=== PATIENT | male | born 1955 | race Caucasian/White ===

== ENCOUNTER 2022-01-29 21:16 | Emergency (ER) | payer MEDICAID ==
[2022-01-29 21:33] VITALS: BP 133/85; PULSE 81
== END 2022-01-29 21:53 | disposition home or self-care (01) ==
LOC: VM.ED 21:16
DX: S67.196A Crushing injury of right little finger, initial encounter (principal); Z79.899 Other long term (current) drug therapy; X58.XXXA Exposure to other specified factors, initial encounter
CPT/HCPCS: 12001; 73140-F9; 99283